=== PATIENT | male | born 1960 | race Caucasian/White ===

== ENCOUNTER 2021-05-30 13:49 | Emergency (ER) | payer OTHER, SELFPAY ==
--- NOTE | ~2021-05-30 | XR_ITS ---
XR knee RT min 4V DATE: 05/30/2021 14:31 INDICATION: Fall 4 days ago. Posterior right knee pain. TECHNIQUE: 4 portable views including crosstable lateral COMPARISON: None FINDINGS: An intramedullary kathy of the tibia is noted with 2 proximal interlocking screws. Healed old fracture deformity of right fibular shaft. Diffuse osteopenia. No recent fracture or dislocation or joint effusion of the right knee is detected. No periosteal reaction or bone destruction. Joint spaces appear well preserved. No radiopaque intra-articular loose body or chondrocalcinosis. IMPRESSION: No recent fracture or dislocation or joint effusion Reviewed, dictated and finalized at location B.
--- NOTE | ~2021-05-30 | CT_ITS ---
EXAMINATION: CT cervical spine wo con DATE: 05/30/2021 16:10 INDICATION: Neck pain TECHNIQUE: Computed tomography (CT) of the cervical spine was performed without intravenous contrast. The dose-length product (DLP) was 131.68 mGy-cm. Automated exposure control and iterative reconstruc tion technique were employed. 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 No acute fracture is identified. Th ere are 2 mm of retrolisthesis of C5 on C6. The vertebral body heights are maintained. Mild loss of i ntervertebral disc space height is present at C4-5 and C5-6. There is mild multilevel facet and uncov ertebral joint osteoarthritis. The prevertebral soft tissues are normal. There is mild emphysema of t he visualized lung apices. IMPRESSION: 1. Mild cervical spondylosis without acute osseous findings. 2. 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 Reviewed, dictated and finalized at location A.
--- NOTE | ~2021-05-30 | CT_ITS ---
EXAMINATION: CT thoracic spine wo con DATE: 05/30/2021 16:10 INDICATION: Back pain TECHNIQUE: Computed tomography (CT) of the thoracic spine was performed without intravenous contrast. The dose-length product (DLP) was 218.89 mGy-cm. Iterative reconstruction was used. COMPARISON: None FINDINGS: There is a burst fracture of the T5 vertebral body with 2 mm of retropulsion of fracture fr agments. There is a compression fracture of the T3 vertebral body. The remaining thoracic vertebral b mehul heights are maintained. Bone alignment is normal. The intervertebral disc spaces are maintained. No additional acute fracture is identified. IMPRESSION: 1. Compression fracture of T3 and burst fracture of T5 with 2 mm of retropulsion of fracture fragment s. These findings were discussed with Lona Mann PA-C in the Emergency Department at 1621 hours on 05/30/2021. Reviewed, dictated and finalized at location A. IMPRESSION: 1. Compression fracture of T3 and burst fracture of T5 with 2 mm of retropulsio n of fracture fragments. These findings were discussed with Lona Mann PA-C in the Emergency Depar tment at 1621 hours on 05/30/2021.
[2021-05-30 14:14] VITALS: BP 125/83; PULSE 101; RESP 18; TEMP 36.8; O2SAT 100
--- NOTE | 2021-05-30 15:53 | ED.BACK ---
HPI - Back Pain/Injury General Chief Complaint: Back Pain/Injury <KIRA Santo Last Filed: 05/30/21 21:26> Stated Complaint: Back Pain <KIRA Santo Last Filed: 05/30/21 21:26> Time Seen by Provider: 05/30/21 15:09 <KIRA Santo Last Filed: 05/30/21 21:26> Source: patient <KIRA Santo Last Filed: 05/30/21 21:26> Mode of arrival: ambulatory <KIRA Santo Last Filed: 05/30/21 21:26> Limitations: no limitations <KIRA Santo Last Filed: 05/30/21 21:26> History of Present Illness HPI Narrative: This is a 52-year-old male that presents to the emergency department for mid back pain present since a fall 3 days ago. Reports he was getting up off the toilet and his right knee gave out. Reports this caused him to fall backwards. Since he has had mid and upper back pain. Worse with movement and relieved with rest. He took an anti-inflammatory with little relief. He has been using Aspercreme to the area. Denies hitting his head, loss of consciousness, vision changes, vomiting, numbness, or weakness. <KIRA Santo Last Filed: 05/30/21 21:26> Related Data Home Medications: Home Medications Medication Instructions Recorded Confirmed No Home Medications 05/30/21 05/30/21 <KIRA Santo Last Filed: 05/30/21 21:26> Allergies/Adverse Reactions: Allergies Allergy/AdvReac Type Severity Reaction Status Date / Time No Known Allergies Allergy Verified 05/30/21 16:58 <KIRA Santo Last Filed: 05/30/21 21:26> Review of Systems Review of Systems: CONSTITUTIONAL: Denies fever EYES: Denies visual changes GASTROINTESTINAL: Denies vomiting MUSCULOSKELETAL: Reports back pain, joint pain, and myalgia. NEUROLOGIC: Denies numbness, or weakness. <KIRA Santo Last Filed: 05/30/21 21:26> All systems reviewed & are unremarkable except as noted in HPI and below <Lona Mann PA-C - Last Filed: 05/30/21 21:26> [facility] Past Medical History Medical History: Medical History (Updated 05/30/21 @ 21:19 by Lona Mann PA-C) No active medical problems <Lona Mann PA-C - Last Filed: 05/30/21 21:26> Social History Social History: Social History (Updated 05/30/21 @ 15:55 by Lona Mann PA-C) Substance use: never <Lona Mann PA-C - Last Filed: 05/30/21 21:26> Exam Narrative: GENERAL: Well-appearing, well-nourished, and in no acute distress. HEAD: Normocephalic, atraumatic. EYES: PERRLA and EOMI. ENT: Nares clear, no rhinorrhea or epistaxis. Mucous membranes moist. Oropharynx without tonsillar hypertrophy exudate or other lesions. Bilateral TMs pearly de anda non-bulging NECK: Supple. No adenopathy or masses. Tender to palpation of midline lower cervical spine CHEST: Clear to auscultation. No respiratory distress. No wheezes rales or rhonchi HEART: Regular rate and rhythm. No murmur heard. Normal peripheral pulses. BACK: Tender to palpation of midline thoracic spine. No midline lumbar spine tenderness EXTREMITIES: Normal range of motion. No edema or obvious deformity. Strength equal in bilateral upper extremities (5/5) SKIN: Warm, dry, no rash. NEURO: No focal deficits. Alert and oriented x3. Cranial nerves II through XII grossly intact PSYCH: Normal mood and affect <Lona Mann PA-C - Last Filed: 05/30/21 21:26> Course Consultations Consultation #1: Spoke with Dr. Chase about patient and workup who recommends transfer to [facility] for further evaluation. Patient will be a direct admit. <Lona Mann PA-C - Last Filed: 05/30/21 21:26> Date: 05/30/21 <Lona Mann PA-C - Last Filed: 05/30/21 21:26> Vital Signs Vital signs: Vital Signs Temperature 36.8 C 05/30/21 14:14 Pulse Rate 101 H 05/30/21 14:14 Respiratory Rate 18 05/30/21 14:14 Blood Pressure 125/83 05/30/21 14:14 Pulse Oximetry 100 08
[2021-05-30 16:59] VITALS: BP 125/76; PULSE 107; RESP 18; O2SAT 99
[2021-05-30] MEDS: HYDROcodone/acetaminophen (*CRX) 5-325 MG TABLET 1 TAB PO (17:11)
--- NOTE | 2021-05-30 19:19 | PC.NURSE ---
Called [facility] to check status on bed. Spoke with Kerry, no beds available at this time. Patient on waitlist.
[2021-05-30 20:08] VITALS: BP 111/76; PULSE 83; RESP 18; O2SAT 99
--- NOTE | 2021-05-30 22:23 | PC.NURSE ---
pt refused wheelchair to move between rooms. pt walked to waiting room without wanting assistance.
--- NOTE | 2021-05-30 22:30 | PC.NURSE ---
Assumed care of pt at this time. Pt alert and upright on stretcher. Updated pt on status of transfer at this time.
[2021-05-30 22:46] VITALS: BP 131/90; PULSE 96; RESP 16; O2SAT 100
--- NOTE | 2021-05-30 23:26 | PC.NURSE ---
Report given to Summer RN at this time.
[2021-05-31 01:24] VITALS: BP 145/93; PULSE 89; RESP 16; O2SAT 100
[2021-05-31 04:25] VITALS: BP 138/93; PULSE 85; RESP 16; TEMP 36.4; O2SAT 98
--- NOTE | 2021-05-31 04:43 | PC.NURSE ---
Mariana from [facility] called for pt update. Pt to go to room [address] Bed A. Number for report is [phone].
--- NOTE | 2021-05-31 05:03 | PC.NURSE ---
Called [facility] to transport patient to [place] [id number]. ETA [id number].
[2021-05-31 05:56] VITALS: BP 147/83; PULSE 86; RESP 16; O2SAT 98
== END 2021-05-31 07:28 | disposition short-term general hospital (02) ==
PROVIDERS: Emergency Provider Emergency Medicine
DX: S22.051A Stable burst fracture of T5-T6 vertebra, initial encounter for closed fracture (principal); S22.030A Wedge compression fracture of third thoracic vertebra, initial encounter for closed fracture; W18.30XA Fall on same level, unspecified, initial encounter
CPT/HCPCS: 72125; 72128; 73564; 99285; A9270